=== PATIENT | female | born 1990 | race Caucasian/White ===

== ENCOUNTER 2019-06-05 11:27 | Emergency (ER) | payer SELFPAY ==
[~2019-06-05] VITALS: Ht 167.6 cm; Wt 97.3 kg
[2019-06-05 11:28] VITALS: TEMP 98
[2019-06-05 12:21] LABS: COLLECTION METHOD CLEAN CATCH
[2019-06-05 12:38] LABS: BASO # 0.1 (0.0-0.2); BASO % 0.5 % (0.0-2.0); EOS # 0.1 (0.0-0.7); EOS % 0.7 % (0-4.0); GRAN # 6.7 (1.4-6.5); GRAN % 73.4 % (42.2-75.2); HEMATOCRIT 42.4 % (37.0-47.0); LYMPH # 1.7 (1.2-3.4); MEAN CELL VOLUME 93 fl (80.0-100.0); MEAN CORPUSCULAR HEMOGLOBIN 31 pg (27.0-31.0); MEAN CORPUSCULAR HGB CONC 33 g/dl (33.0-37.0); MEAN PLATELET VOLUME 11.9 fl (7.4-10.4); MONO # 0.5 (0.1-0.6); MONO % 5.9 % (1.7-9.3); PLATELET COUNT 242 K/mm3 (130-400); RED BLOOD COUNT 4.57 M/mm3 (4.10-5.30); REDCELL DISTRIBUTION WIDTH-CV 13.2 % (11.5-14.5)
[2019-06-05 12:42] LABS: MUCOUS Present /lpf; PH 5 (5-8); URINE APPEARANCE Clear; URINE BACTERIA None Seen /hpf; URINE BILIRUBIN Negative (NEGATIVE); URINE BLOOD 2+ (NEGATIVE); URINE COLOR Yellow; URINE GLUCOSE Negative (NEGATIVE); URINE KETONE Negative (NEGATIVE); URINE LEUKOCYTE ESTERASE Negative (NEGATIVE); URINE NITRATE Negative (NEGATIVE); URINE PROTEIN(semi-quant) Negative (NEGATIVE); URINE RBC 0-2 /hpf; URINE UROBILINOGEN Negative (NEGATIVE)
[2019-06-05 12:52] LABS: ALANINE AMINOTRANSFERASE < 6 U/L (9-52); ALBUMIN 4.4 gm/dL (3.5-5.0); ALKALINE PHOSPHATASE 58 U/L (50-136); ANION GAP 12 mmol/L (7-16); AST,SGOT 22 U/L (15-37); BILIRUBIN,TOTAL 0.4 mg/dL (0.0-1.0); BLOOD UREA NITROGEN 14 mg/dL (7-17); C-REACTIVE PROTEIN 0.6 mg/dL (0.0-0.9); CALCIUM 9.5 mg/dL (8.4-10.2); CARBON DIOXIDE 24 mmol/L (22-30); CHLORIDE 107 mmol/L (98-107); CREATININE, serum 0.57 (0.52-1.25); GLUCOSE 101 mg/dL (74-106); POTASSIUM 3.7 mmol/L (3.4-5.0); SODIUM 143 mmol/L (137-145); TOTAL PROTEIN 8.1 gm/dL (6.4-8.2)
[2019-06-05 15:20] VITALS: BP 129/62; PULSE 74
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
== END 2019-06-05 15:28 | disposition home or self-care (01) ==
LOC: COL.ER 11:27
PROVIDERS: Family Medicine
DX: G44.209 Tension-type headache, unspecified, not intractable (principal); N72 Inflammatory disease of cervix uteri
CPT/HCPCS: J0696; J1885

== ENCOUNTER 2019-09-14 12:38 | Emergency (ER) | payer SELFPAY ==
[~2019-09-14] VITALS: Ht 167.6 cm; Wt 103.6 kg
[2019-09-14] MEDS ORDERED: BUSPAR DIVIDOSE15 MG (12:55)
[2019-09-14] MEDS ORDERED: DESYREL DIVIDO150 M1 PO (12:55)
[2019-09-14] MEDS ORDERED: CEPHALEXIN500 M1 PO ×2 (13:19→13:27)
== END 2019-09-14 13:30 | disposition home or self-care (01) ==
LOC: COL.ER 12:38
DX: L02.811 Cutaneous abscess of head [any part, except face] (principal); F17.210 Nicotine dependence, cigarettes, uncomplicated

== ENCOUNTER 2019-11-23 18:00 | Emergency (ER) | payer SELFPAY ==
[~2019-11-23] VITALS: Ht 170.2 cm; Wt 109.1 kg
[~2019-11-23 18:00] MED LIST: BUSPAR DIVIDOSE15 MG; CEPHALEXIN500 M1 PO; DESYREL DIVIDO150 M1 PO
[2019-11-23] MEDS ORDERED: TAMIFLU 75MG75 MG PO (19:32)
[2019-11-23 19:59] VITALS: BP 124/74; PULSE 86; TEMP 98.3
== END 2019-11-23 20:00 | disposition home or self-care (01) ==
LOC: COL.ER 18:00
DX: J09.X2 Influenza due to identified novel influenza A virus with other respiratory manifestations (principal)